=== PATIENT | female | born 2000 | race Caucasian/White ===

== ENCOUNTER 2024-07-07 08:21 | Day surgery (SDC) | payer BC ==
[2024-07-07 09:19] LABS: BASOPHILS ABSOLUTE AUTO 0.1 K/mm3 (0.0-0.2); EOSINOPHILS ABSOLUTE AUTO 1.7 K/mm3 (0.0-0.4); EOSINOPHILS PERCENT AUTO 13.6 % (0.0-6.0); HEMATOCRIT 33.4 % (37.0-47.0); HEMOGLOBIN 10.5 gm/dl (12.0-16.0); IMMATURE GRAN ABSOLUTE AUTO 0.03 K/mm3 (0.00-0.05); IMMATURE GRAN PERCENT AUTO 0.2 % (0.0-0.4); LYMPHOCYTES ABSOLUTE AUTO 2.9 K/mm3 (1.0-4.8); LYMPHOCYTES PERCENT AUTO 23.5 % (24.0-44.0); MEAN CORPUSCULAR HEMOGLOBIN 24.6 pg (28.0-32.0); MEAN CORPUSCULAR HGB CONC 31.4 g/dl (32.0-36.0); MEAN CORPUSCULAR VOLUME 78.2 fl (83.0-99.0); MEAN PLATELET VOLUME 12.3 fl (9.4-12.3); MONOCYTES ABSOLUTE AUTO 0.9 K/mm3 (0.0-0.8); NEUTROPHILS ABSOLUTE AUTO 6.8 K/mm3 (1.8-7.7); NEUTROPHILS PERCENT AUTO 54.7 % (41.0-71.0); PLATELET COUNT,PLT 290 K/mm3 (150-400); RED BLOOD CELL COUNT 4.27 M/mm3 (4.10-5.30)
[2024-07-07] MEDS: Sodium Chloride 0.9% 1,000 ML IV ONE (09:46)
[2024-07-07] MEDS: Sodium Chloride 0.9% 10 ML Syringe FLUSH ONE (09:47)
[2024-07-07 09:49] LABS: A/G RATIO 0.8 (1-2); ALBUMIN 3.5 g/dl (3.4-5.0); ANION GAP 13.3 (5-15); BILIRUBIN TOTAL 0.3 mg/dL (0.2-1.0); CALCIUM 8.9 mg/dL (8.5-10.1); CREATININE 0.8 mg/dL (0.55-1.02); EST CRCL DRUG DOSING (CG) 118.27 mL/min; MAGNESIUM 1.8 mg/dL (1.8-2.4); POTASSIUM,K 3.3 mEq/L (3.5-5.1)
[2024-07-07] MEDS: Sodium Chloride 0.9% 10 ML Syringe FLUSH PRN (09:50)
[2024-07-07] MEDS: Iopamidol 612 MG/ML 100 ML Bottle IVPUSH ONE (09:50)
[2024-07-07 10:58] LABS: APPEARANCE,URINE CLEAR (Clear); BILIRUBIN,URINE NEGATIVE (Negative); COLOR,URINE YELLOW (Yellow); GLUCOSE,URINE NEGATIVE (Negative); KETONES,URINE TRACE (Negative); LEUKOCYTE ESTERASE,URINE NEGATIVE (Negative); NITRITE,URINE NEGATIVE (Negative); OCCULT BLOOD,URINE NEGATIVE (Negative); PROTEIN,URINE TRACE (Negative); UROBILINOGEN,URINE 0.2 (0.2-1.0)
[2024-07-07 11:39] LABS: BACTERIA,URINE FEW /hpf (FEW); EPITHELIAL CELLS,URINE 0-5 /hpf (0-5); MUCUS,URINE FEW /hpf (FEW); RBC,URINE 0-5 /hpf (0-5); WBC,URINE 0-5 /hpf (0-5)
[2024-07-07] MEDS ORDERED: Midazolam 1 MG/ML 2 ML SDV ONE (12:14)
[2024-07-07] MEDS ORDERED: Ketamine 200 MG/20 ML MDV ONE (12:14)
[2024-07-07] MEDS ORDERED: fentaNYL 250 MCG/5 ML SDV ONE (12:14)
[2024-07-07] MEDS ORDERED: Propofol 200 MG/20 ML SDV ONE (12:14)
[2024-07-07] MEDS ORDERED: Ondansetron 4 MG/2 ML SDV ONE (12:15)
[2024-07-07] MEDS ORDERED: Rocuronium 50 MG/5 ML Vial ONE (12:15)
[2024-07-07] MEDS ORDERED: Lidocaine 1% 5 ML VIAL ONE (12:15)
[2024-07-07] MEDS ORDERED: Piperacillin/Tazobactam 4.5 GM in Sodium Chloride 0.9% 100 ML IV ONE (12:35)
[2024-07-07] MEDS ORDERED: Sodium Chloride 0.9% 1,000 ML IV SCH (13:00)
[2024-07-07] MEDS: Piperacillin/Tazobactam 4.5 GM Vial IV ONE (13:33)
[2024-07-07] MEDS ORDERED: Bupivacaine 0.5% 30 ML SDV ONE (13:39)
[2024-07-07] MEDS ORDERED: EPINEPHrine 1 MG/ML SDV ONE (13:39)
[2024-07-07] MEDS ORDERED: Lidocaine 1% with EPINEPHrine 1:100,000 20 ML MDV ONE ×2 (13:39)
[2024-07-07] MEDS ORDERED: Sugammadex Sodium 200 MG/2 ML VIAL IV ONE (13:57)
[2024-07-07] MEDS ORDERED: Dexamethasone 4 MG/ML 5 ML MDV ONE (14:54)
[2024-07-07 18:31] VITALS: BP 116/68; PULSE 74
== END 2024-07-07 17:54 | disposition home or self-care (01) ==
LOC: JD.ED 08:21 → JD.SDS 14:04
PROVIDERS: ATTEND Surgery
DX: K35.890 Other acute appendicitis without perforation or gangrene (principal); F90.9 Attention-deficit hyperactivity disorder, unspecified type; Z79.899 Other long term (current) drug therapy; K50.90 Crohn's disease, unspecified, without complications
CPT/HCPCS: 36415; 44970; 74177; 80053; 81001; 83690; 83735; 84703; 85025; 93005; 96361; 96374; 99285; J0171; J0665; J1100; J2250; J2405; J2543; J2704; J3010; J3490; J7030; Q9967